=== PATIENT | female | born 1945 | race Caucasian/White ===

== ENCOUNTER → 2016-09-04 | Outpatient (CLI) | payer MEDICARE ==
[2016-01-09 16:10] VITALS: BP 124/63
[~2016-09-04] MED LIST: ALBU8.5H3 INH; ALPR0.254 PO; ALPR0.5T PO; AMIT25TA PO; ATOR10TA PO; AZIT250T PO; CEPH500C PO; GLIP10TA13 PO; INSU100I27 SQ; LEVO75TA5 PO; LISI40TA PO; MELO-150 PO; SITA50TA PO; TRIA1CAP3 PO
--- NOTE | 2016-09-04 14:03 | RAD ---
Ultrasound of the left neck 09/04/2016 Clinical history: Palpable abnormality in the left submandibular region of the neck since May of this year. Technique: A real-time ultrasound examination of the left neck in the area of the patient's palpable abnormality was performed. Multiple images were obtained. Findings: Comparison is made to patient's CT scan of the neck dated 06/22/2016. Anterior and inferior to the left submandibular gland an oval-shaped hyperechoic mass is seen which measures 1.5 cm in greatest diameter. This corresponds to the patient's palpable abnormality. It is approximately 2 mm deep to the skin surface. This is consistent with a lipoma. No additional abnormality is seen. Small likely reactive lymph nodes are seen in the left submandibular region. These measure 5 to 7 mm in size Impression: The patient's palpable abnormality represents a 1.5 cm lipoma within the left submandibular region as outlined above.
== END | disposition home or self-care (01) ==
LOC: US 12:32
PROVIDERS: ATTEND Family Medicine
DX: R59.0 Localized enlarged lymph nodes (principal)
CPT/HCPCS: 76536

== ENCOUNTER 2016-09-29 00:07 | Emergency (ER) | payer MEDICARE ==
[~2016-09-29 00:07] MED LIST changes: -ALBU8.5H3 INH; +ALBU8.5H8 INH; -MELO-150 PO; +MELO15TA23 PO
--- NOTE | 2016-09-29 00:11 | ED.ADGEN ---
Past History Past Medical History: Anxiety, Diabetes, High Cholesterol, Hypertension Past Surgical History: Hysterectomy Alcohol Use: None Drug Use: None Adult General Chief Complaint Chief Complaint Chest pain HPI HPI Patient is a 71 year old female who presents with. She states that she was just sitting there watching TV working with some crafts when she got a substernal left-sided chest pain that was constant and lasted for about an hour and is slowly letting up. She denied any shortness of breath associated with this but felt some nausea. She states she's never had pain like this before and she's never had a stress test of her heart. She denies any history of tobacco abuse. Review of Systems Review of Systems Constitutional: Denies fever or chills [] Eyes: Denies change in visual acuity, redness, or eye pain [] HENT: Denies nasal congestion or sore throat [] Respiratory: Denies cough or shortness of breath [] Cardiovascular: No additional information not addressed in HPI [] GI: Denies abdominal pain, nausea, vomiting, bloody stools or diarrhea [] : Denies dysuria or hematuria [] Musculoskeletal: Denies back pain or joint pain [] Integument: Denies rash or skin lesions [] Neurologic: Denies headache, focal weakness or sensory changes [] Endocrine: Denies polyuria or polydipsia [] Current Medications Current Medications Current Medications Medications (Trade) Dose Ordered Sig/Mejia Start Time Stop Time Status Last Admin Dose Admin Morphine Sulfate (Morphine 2mg Syringe) 2 mg PRN Q15MIN PRN 09/29/16 00:15 09/30/16 00:14 Allergies Allergies Allergies Coded Allergies Type Severity Reaction Last Updated Verified Salicylates Allergy Intermediate 07/14/15 Yes fentanyl Allergy Intermediate 07/14/15 Yes oxaprozin Allergy Intermediate 07/14/15 Yes Physical Exam Physical Exam Constitutional: Well developed, well nourished, no acute distress, non-toxic appearance. [] HENT: Normocephalic, atraumatic, bilateral external ears normal, oropharynx moist, no oral exudates, nose normal. [] Eyes: PERRLA, EOMI, conjunctiva normal, no discharge. [] Neck: Normal range of motion, no tenderness, supple, no stridor. [] Cardiovascular:Heart rate regular rhythm, no murmur [] Lungs & Thorax: Bilateral breath sounds clear to auscultation [] Abdomen: Bowel sounds normal, soft, no tenderness, no masses, no pulsatile masses. [] Skin: Warm, dry, no erythema, no rash. [] Back: No tenderness, no CVA tenderness. [] Extremities: No tenderness, no cyanosis, no clubbing, ROM intact, no edema. [] Neurologic: Alert and oriented X 3, normal motor function, normal sensory function, no focal deficits noted. [] Psychologic: Affect normal, judgement normal, mood normal. [] Current Patient Data Lab Results Laboratory Tests Test 09/29/16 00:20 09/29/16 01:10 09/29/16 04:17 White Blood Count 9.9 x10^3/uL (4.0-11.0) Red Blood Count 4.49 x10^6/uL (3.50-5.40) Hemoglobin 14.6 g/dL (12.0-15.5) Hematocrit 43.2 % (36.0-47.0) Mean Corpuscular Volume 96 fL (79-100) Mean Corpuscular Hemoglobin 32 pg (25-35) Mean Corpuscular Hemoglobin Concent 34 g/dL (31-37) Red Cell Distribution Width 13.2 % (11.5-14.5) Platelet Count 317 x10^3/uL (140-400) Neutrophils (%) (Auto) 52 % (31-73) Lymphocytes (%) (Auto) 38 % (24-48) Monocytes (%) (Auto) 8 % (0-9) Eosinophils (%) (Auto) 1 % (0-3) Basophils (%) (Auto) 1 % (0-3) Neutrophils # (Auto) 5.2 x10^3uL (1.8-7.7) Lymphocytes # (Auto) 3.7 x10^3/uL (1.0-4.8) Monocytes # (Auto) 0.8 x10^3/uL (0.0-1.1) Eosinophils # (Auto) 0.1 x10^3/uL (0.0-0.7) Basophils # (Auto) 0.1 x10^3/uL (0.0-0.2) Prothrombin Time 10.1 SEC (9.4-11.4) Prothrombin Time INR 1.0 (0.9-1.1) PTT 22 SEC (23-33) L Sodium Level 139 mmol/L (136-145) Potassium Level 3.6 mmol/L (3.5-5.1) Chloride Level 101 mmol/L (98-107) Carbon Dioxide Level 28 mmol/L (21-32) Anion Gap 10 (6-14) Blood Urea Nitrogen 34 mg/dL (7-20) H Creatinine 1.3 mg/dL (0.6-1.0) H Estimated GFR (Cockcroft-Gault) 40.6 Glucose Level 290 mg/dL (70-99) H Calcium Level 9.1 mg/dL (8.5-10.1) Magnesium Level 1.8 mg/dL (1.8-2.4) Total Bilirubin 1.1 mg/dL (0.2-1.0) H Direct Bilirubin 0.2 mg/dL (0.0-0.2) Aspartate Amino Transferase (AST) 14 U/L (15-37) L Alanine Aminotransferase (ALT) 22 U/L (14-59) Alkaline Phosphatase 93 U/L (46-116) Creatine Kinase 32 U/L (26-192) 39 U/L (26-192) Creatine Kinase MB (Mass) < 0.5 ng/mL (0.0-3.6) 0.5 ng/mL (0.0-3.6) Creatine Kinase MB Relative Index 1.6 % (0-4) 1.3 % (0-4) Troponin I Quantitative < 0.017 ng/mL (0-0.055) < 0.017 ng/mL (0-0.055) HB-Uxw-A-Type Natriuretic Peptide 143 pg/mL (0-124) H Total Protein 7.5 g/dL (6.4-8.2) Albumin 3.4 g/dL (3.4-5.0) Lipase 158 U/L (73-393) Urine Collection Type Unknown Urine Color Yellow Urine Clarity Hazy Urine pH 5.0 Urine Specific [place] 1.010 Urine Protein Neg (NEG-TRACE) Urine Glucose (UA) 250 mg/dL (NEG) Urine Ketones (Stick) Neg mg/dL (NEG) Urine Blood Neg (NEG) Urine Nitrite Pos (NEG) Urine Bilirubin Neg (NEG) Urine Urobilinogen Dipstick 0.2 mg/dL (0.2 mg/dL) Urine Leukocyte Esterase Mod (NEG) Urine RBC 0 /HPF (0-2) Urine WBC 20-40 /HPF (0-4) Urine Squamous Epithelial Cells Many /LPF Urine Bacteria Mod /HPF (0-FEW) Urine Opiates Screen Neg (NEG) Urine Methadone Screen Neg (NEG) Urine Barbiturates Neg (NEG) Urine Phencyclidine Screen Neg (NEG) Urine Amphetamine/Methamphetamine Neg (NEG) Urine Benzodiazepines Screen Pos (NEG) Urine Cocaine Screen Neg (NEG) Urine Cannabinoids Screen Neg (NEG) Urine Ethyl Alcohol Neg (NEG) EKG EKG KG shows normal sinus rhythm with rate of [address] elevations or T- wave inversions, left axis deviation, QTC 438 ms, as interpreted by me. Radiology/Procedures Radiology/Procedures Two-view chest x-ray shows no focal consolidations, mediastinum is approximately 9 cm wide, no bony abnormalities, no pneumothorax noted, as interpreted by me. Course & Med Decision Making Course & Med Decision Making Pertinent Labs and Imaging studies reviewed. (See chart for details) EKG, chest x-ray, CT chest 7 pelvis without contrast did not show any acute abnormalities. Her pain is completely resolved. She is refusing to be admitted. Her daughter is here and overheard a conversation and is okay with her mom making the decision to leave AGAINST MEDICAL ADVICE. She is being discharged home. She is to follow-up with primary care physician for an outpatient stress test. She is return back to ER for pain returns or she has any other abnormalities. I did repeat 1 troponin prior to her being discharged. She is agreeable to the plan and being discharged in stable condition this time. Final Impression Final Impression Chest pain [] Problems: Dragon Disclaimer Dragon Disclaimer This electronic medical record was generated, in whole or in part, using a voice recognition dictation system. ARNALDO TEMPLETON MD September 29, 2016 00:11
[2016-09-29] MEDS ORDERED: MORPHINE SULFATE 2 MG/ML DISP.SYRIN. IV/SQ PRN (00:15)
[2016-09-29 00:39] LABS: BASO # 0.1 x10^3/uL (0.0-0.2); BASO % 1 % (0-3); EOS # 0.1 x10^3/uL (0.0-0.7); EOS % 1 % (0-3); HEMATOCRIT 43.2 % (36.0-47.0); HEMOGLOBIN 14.6 g/dL (12.0-15.5); LYMPH # 3.7 x10^3/uL (1.0-4.8); LYMPH % 38 % (24-48); MEAN CORPUSCULAR HEMOGLOBIN 32 pg (25-35); MEAN CORPUSCULAR HGB CONC 34 g/dL (31-37); MEAN CORPUSCULAR VOLUME 96 fL (79-100); MONO # 0.8 x10^3/uL (0.0-1.1); MONO % 8 % (0-9); NEUT # 5.2 x10^3uL (1.8-7.7); NEUT % 52 % (31-73); PLATELET COUNT 317 x10^3/uL (140-400); RED BLOOD COUNT 4.49 x10^6/uL (3.50-5.40); RED CELL DISTRIBUTION WIDTH 13.2 % (11.5-14.5); WHITE BLOOD COUNT 9.9 x10^3/uL (4.0-11.0)
[2016-09-29 00:57] LABS: ALBUMIN 3.4 g/dL (3.4-5.0); ALK PHOS 93 U/L (46-116); ALT (SGPT) 22 U/L (14-59); ANION GAP 10 (6-14); AST (SGOT) 14 U/L (15-37); BLOOD UREA NITROGEN 34 mg/dL (7-20); CALCIUM 9.1 mg/dL (8.5-10.1); CARBON DIOXIDE 28 mmol/L (21-32); CHLORIDE 101 mmol/L (98-107); CREATINE KINASE 32 U/L (26-192); CREATININE 1.3 mg/dL (0.6-1.0); DIRECT BILIRUBIN 0.2 mg/dL (0.0-0.2); GFR 40.6; GLUCOSE 290 mg/dL (70-99); LIPASE 158 U/L (73-393); MAGNESIUM 1.8 mg/dL (1.8-2.4); POTASSIUM 3.6 mmol/L (3.5-5.1); SODIUM 139 mmol/L (136-145); TOTAL BILIRUBIN 1.1 mg/dL (0.2-1.0); TOTAL PROTEIN 7.5 g/dL (6.4-8.2)
[2016-09-29 01:27] LABS: AMPHETAMINE/METHAMPHETAMINE NEG (NEG); BARBITURATES NEG (NEG); BENZODIAZEPINES POS (NEG); CANNABINOIDS NEG (NEG); COCAINE NEG (NEG); METHADONE NEG (NEG); OPIATES NEG (NEG); PHENCYCLIDINE NEG (NEG)
[2016-09-29 01:30] LABS: BILIRUBIN,URINE NEG (NEG); CLARITY,URINE HAZY; COLOR,URINE YELLOW; GLUCOSE,URINE 250 mg/dL (NEG); NITRITE,URINE POS (NEG); UROBILINOGEN,URINE 0.2 mg/dL (0.2 mg/dL)
[2016-09-29 01:31] LABS: BACTERIA,URINE MOD /HPF (0-FEW); RBC,URINE 0 /HPF (0-2); SQUAMOUS EPITHELIAL CELL,UR MANY /LPF; WBC,URINE 20-40 /HPF (0-4)
--- NOTE | 2016-09-29 03:04 | RAD ---
PROCEDURE CT chest abdomen and pelvis without contrast. HISTORY Chest pain and nausea tonight. TECHNIQUE Helical CT imaging of the chest abdomen and pelvis is performed without IV or oral contrast. PQRS: One or more the following individualized dose reduction techniques were utilized for the study: 1. Automated exposure control. 2. Adjustment of the mA and/or kV according to patient size. 3. Use of iterative reconstruction technique. COMPARISON CT abdomen pelvis with contrast, July 14, 2015. FINDINGS Evaluation of solid organs and bowel is limited without oral and IV contrast, decreasing sensitivity for detection of pathology. There are several subcentimeter mediastinal lymph nodes. Calcified left hilar lymph nodes. Great vessels upper limits of normal in caliber. Coronary artery disease. Mild mitral annular calcification. Cardiac size normal, no pericardial effusion. There is no pleural effusion or pneumothorax. Respiratory motion artifact. Central airways patent. Mild atelectasis or scarring in the periphery of the right lower lobe in the lingula. Calcified granuloma left lower lobe. Cholecystectomy. The liver, spleen, pancreas, adrenal glands, and abdominal aortic caliber are normal. Moderate atherosclerotic calcification. Mild bilateral perinephric stranding. There is no hydronephrosis. There is motion artifact in the upper abdomen. No obvious abnormality of the stomach. No dilated small bowel. There is no colon wall thickening. The appendix is normal. No abdominal adenopathy or free fluid. Urinary bladder is normal. Uterus surgically absent. No pelvic free fluid. Mild grade 1 anterolisthesis of L4 on L5. No compression fracture. IMPRESSION No acute abnormality in the chest abdomen or pelvis. Electronically signed by: Danilo Pierson MD (September 29, 2016 03:02:05)
[2016-09-29 04:30] VITALS: BP 121/85
--- NOTE | 2016-09-29 06:39 | EKG ---
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
--- NOTE | 2016-09-29 07:01 | RAD ---
Indication: Chest pain. Time of exam 0032 hours. Comparison is made with prior chest from 03/02/2016. FINDINGS: The heart size is normal. The lungs are clear. No pleural effusion or pneumothorax is identified. The pulmonary vascularity is normal. IMPRESSION: No acute abnormality detected.
== END 2016-09-29 04:30 | disposition home or self-care (01) ==
LOC: ER 00:07
DX: R07.89 Other chest pain (principal); E78.00 Pure hypercholesterolemia, unspecified; I10 Essential (primary) hypertension; E11.9 Type 2 diabetes mellitus without complications; Z88.8 Allergy status to other drugs, medicaments and biological substances
CPT/HCPCS: 36415; 71010; 71250; 74176; 80048; 80076; 80305; 81001; 82553; 83690; 83735; 83880; 84484; 85027; 85610; 85730; 87086; 93005; G0481; 99285-25

== ENCOUNTER → 2016-12-09 | Outpatient (CLI) | payer MEDICARE ==
--- NOTE | 2016-12-09 12:35 | RAD ---
EXAM: DIGITAL SCREEN BILAT W/CAD HISTORY: Routine Screening. COMPARISON: 11/12/2015 Standard mammographic views are obtained of the bilateral breasts. This study was interpreted with the benefit of Computerized Aided Detection (CAD). FINDINGS: The breast parenchyma is primarily fatty replaced. Breast parenchyma level density 1.. There is no definite new suspicious spiculated mass or worrisome new cluster of microcalcifications. Repeat demonstration of numerous benign-appearing calcifications bilaterally. Some of these have increased from prior. IMPRESSION: No definite new suspicious mass. BI-RADS CATEGORY: 2 BENIGN FINDING RECOMMENDED FOLLOW-UP: 12M 12 MONTH FOLLOW-UP PQRS compliance statement: Patient information was entered into a reminder system with a target due date for the next mammogram. Mammography is a sensitive method for finding small breast cancers, but it does not detect them all and is not a substitute for careful clinical examination. A negative mammogram does not negate a clinically suspicious finding and should not result in delay in biopsying a clinically suspicious abnormality. "Our facility is accredited by the [employer] Mammography Program."
== END | disposition home or self-care (01) ==
LOC: MAMMO 11:02
PROVIDERS: ATTEND Family Medicine
DX: Z12.31 Encounter for screening mammogram for malignant neoplasm of breast (principal); E11.21 Type 2 diabetes mellitus with diabetic nephropathy
CPT/HCPCS: G0202; 77067

== ENCOUNTER → 2020-02-08 | Outpatient (CLI) | payer MEDICARE ==
[~2020-02-08] MED LIST changes: +ALBU2.5V8 INH; -ALBU8.5H8 INH
--- NOTE | 2020-02-08 09:08 | RAD ---
ABDOMEN COMPLETE History: Abnormal liver function tests Comparison: None. Findings: Multiple sonographic images of the abdomen are submitted. Exam is limited due to patient's body habitus. There has been cholecystectomy. There is diffuse coarsening of the hepatic echotexture of the liver. Right lobe of the liver measured 17.4 cm longitudinal. There is segmental visualization of the inferior vena cava. Common bile duct measures about 0.7 cm, considered within normal limits given patient's age and cholecystectomy. Right kidney measured 9.5 x 6.3 x 5 cm, no hydronephrosis. Left kidney measured 9.1 x 4.2 x 4.7 cm, no hydronephrosis. Abdominal aortic caliber is within normal limits up to 2.2 cm. Spleen measured up to 10.3 cm. Impression: 1. There is diffuse coarsening of the hepatic echotexture more commonly due to steatosis. Electronically signed by: Anthony Colon MD (02/08/2020 9:05 AM) [id number]
== END | disposition home or self-care (01) ==
LOC: US 07:42
PROVIDERS: ATTEND Family Medicine
DX: K76.0 Fatty (change of) liver, not elsewhere classified (principal); Z90.49 Acquired absence of other specified parts of digestive tract
CPT/HCPCS: 76700

== ENCOUNTER 2021-03-21 03:42 | Emergency (ER) | payer MEDICARE ==
[~2021-03-21] VITALS: Ht 162.6 cm; Wt 143.6 kg
[~2021-03-21 03:42] MED LIST changes: -LISI40TA PO; +LISI40TA6 PO
--- NOTE | 2021-03-21 03:45 | PHYS DOC ---
Past History Past Medical History: Diabetes, Hypertension, Hypothyroid Past Surgical History: Hysterectomy Alcohol Use: None Drug Use: None General Adult HPI: HPI: .. " I rolled over and fell out of bed.. and hurt my Rt. hip.. it coreen ... Embarrassing... I used to go to [place]... They were on high-volume ... So they brought me here .. it been a long time since I ve been to [place]..." Patient is a 75 year old female who presents with above hx and complaints right hip and femur pain after falling out of bed. Patient states she is unable to bear weight because of pain on her right hip. Patient denies other injury from the fall out of bed. Patient has past medical history of chronic sores and cellulitis episodes on her legs. Diabetes type 2, morbid obesity, hypertension, hyper lipidemia, depression, anxiety, hypothyroidism. Patient has had previous abdomen surgeries of hysterectomy and arthroscopic evaluation of right knee. Patient denies any recent travel outside the [place] area. No significant ill contacts. Patient is up-to-date with [place] vaccinationx2. Patient follow- up with Dr. Moreno Review of Systems: Review of Systems: Constitutional: Denies fever or chills Eyes: Denies change in visual acuity HENT: Denies nasal congestion or sore throat Respiratory: Denies cough or shortness of breath Cardiovascular: Denies chest pain or edema GI: Denies abdominal pain, nausea, vomiting, bloody stools or diarrhea : Denies dysuria Musculoskeletal: Complains of right hip and leg pain Integument: Denies rash Neurologic: Denies headache, focal weakness or sensory changes Endocrine: Denies polyuria or polydipsia Lymphatic: Denies swollen glands Psychiatric: Denies depression or anxiety Family History: Family History: There is family history of CVA as cause of with father, mother of congestive heart failure, one sister of end-stage renal disease, other 2 s isters are healthy. 2 brothers that are healthy. Current Medications: Current Meds: See nursing for home meds Allergies: Allergies: Allergies Coded Allergies Type Severity Reaction Last Updated Verified Salicylates Allergy Intermediate 07/14/15 Yes fentanyl Allergy Intermediate 07/14/15 Yes oxaprozin Allergy Intermediate 07/14/15 Yes Physical Exam: PE: Constitutional: mild distress, non-toxic appearance. [] HENT: Normocephalic, atraumatic, bilateral external ears normal, oropharynx moist, no oral exudates, nose normal. [] Eyes: PERRLA, EOMI, conjunctiva normal, no discharge. [] Neck: Normal range of motion, no tenderness, supple, no stridor. [] Cardiovascular:Heart rate regular rhythm, no murmur, PMI to the left Lungs & Thorax: Bilateral breath sounds to apex with bibasilar crackles on auscultation [] Abdomen: Bowel sounds normal, soft, no tenderness, no masses, no pulsatile masses. Morbid obesity Skin: Warm, dry, no erythema, no rash. [] Back: No tenderness, no CVA tenderness. [] Extremities: Right hip and pelvic tenderness, no cyanosis, no clubbing, ROM intact, bilateral leg edema. [] Neurologic: Alert and oriented X 3, moves all extremities on request, does have distal sensory, no focal deficits noted. [] Psychologic: Affect anxious, judgement normal, mood normal. [] EKG: EKG: My interpretation EKG shows a sinus rhythm at 82 bpm. No acute morphology. Is an irregular ribbon at times appears to be A. fib however isolated P wave is appreciated and lead II on monitor time EKG is 421 hours [] Radiology/Procedures: Radiology/Procedures: [][place] [address] IMAGING REPORT Signed PATIENT: PARISH CRUZ ACCOUNT: [id number] : 1945 LOCATION: ER AGE: 75 SEX: F EXAM STATUS: PRE ER ORD. PHYSICIAN: RENEE CALDERON MD REASON: fall PROCEDURE: CT LUMBAR SPINE WO CONTRAST Examination: CT lumbar spine and pelvis without contrast HISTORY: History of fall COMPARISON: None available TECHNIQUE: Axial CT images of the lumbar spine and pelvis without contrast. Coronal and sagittal reformats are performed Exposure: One or more of the following individualized dose reduction techniques were utilized for this examination: 1. Automated exposure control 2. Adjustment of the mA and/or kV according to patient size 3. Use of iterative reconstruction technique. FINDINGS: The lumbar vertebral body heights are maintained. Moderate intervertebral disc height loss identified in the lumbar spine most severe at L5-S1 vertebral level 5 lumbar vertebrae are assumed. The bilateral femoral heads within the acetabula. There is no acute fracture identified. Ochoa catheter balloon identified in the bladder. Feces and gas noted in the colon. IMPRESSION: 1. No acute fracture of the lumbar spine. 2. Moderate degenerative changes lumbar spine most severe at L5-S1 vertebral level. Electronically signed by: Ta Sandoval MD (03/21/2021 5:59 AM) [id number] DICTATED AND SIGNED BY: TA SANDOVAL MD DATE: 03/21/21550 CC: GAYLE MORENO MD; RENEE CALDERON MD ~[facility]0 0 [facility] [address] [place] [address] IMAGING REPORT Signed PATIENT: PARISH CRUZ ACCOUNT: [id number] : 1945 LOCATION: ER AGE: 75 SEX: F EXAM STATUS: PRE ER ORD. PHYSICIAN: RENEE CALDERON MD REASON: fall PROCEDURE: CT PELVIS WO CONTRAST Examination: CT lumbar spine and pelvis without contrast HISTORY: History of fall COMPARISON: None available TECHNIQUE: Axial CT images of the lumbar spine and pelvis without contrast. Coronal and sagittal reformats are performed Exposure: One or more of the following individualized dose reduction techniques were utilized for this examination: 1. Automated exposure control 2. Adjustment of the mA and/or kV according to patient size 3. Use of iterative reconstruction technique. FINDINGS: The lumbar vertebral body heights are maintained. Moderate intervertebral disc height loss identified in the lumbar spine most severe at L5-S1 vertebral level 5 lumbar vertebrae are assumed. The bilateral femoral heads within the acetabula. There is no acute fracture identified. Ochoa catheter balloon identified in the bladder. Feces and gas noted in the colon. IMPRESSION: 1. No acute fracture of the lumbar spine. 2. Moderate degenerative changes lumbar spine most severe at L5-S1 vertebral level. Electronically signed by: Ta Sandoval MD (03/21/2021 5:59 AM) [id number] DICTATED AND SIGNED BY: TA SANDOVAL MD DATE: 03/21/21550 CC: GAYLE MORENO MD; RENEE CALDERON MD ~MTH0 0 Heart Score: C/O Chest Pain: No HEART Score for Chest Pain: HEART Score for Chest Pain Response (Comments) Value History Moderately Suspicious 1 ECG Nonspecific Repolarizatio 1 Age > 65 2 Risk Factors 1 or 2 Risk Factors 1 Troponin < Normal Limit 0 Total 5 Risk Factors: Risk Factors: DM, Current or recent (<one month) smoker, HTN, HLP, family history of CAD, obesity. Risk Scores: Score 0 - 3: 2.5% MACE over next 6 weeks - Discharge Home Score 4 - 6: 20.3% MACE over next 6 weeks - Admit for Clinical Observation Score 7 - 10: 72.7% MACE over next 6 weeks - Early Invasive Strategies Course & Med Decision Making: Course & Med Decision Making Pertinent Labs and Imaging studies reviewed. (See chart for details) Patient use ice packs as needed. Keep passive range of motion. Follow-up primary care. Return if any concerns. Patient discussed with her doctor her findings of CHF and hypertension. Return if any concerns. Tylenol and ibuprofen for discomfort. Impression: 1. History of fall from bed 2. Contusion 3. CHF BNP is 1160 4. History of hypothyroidism 5. Morbid obesity 6. History diabetes glucose stable at 94 7. History of hypothyroidism TSH is 7.66 8. Hypertension 9. History of hyperlipidemia [] Dragon Disclaimer: Akil Disclaimer: This electronic medical record was generated, in whole or in part, using a voice recognition dictation system. Departure Departure: Referrals: GAYLE MORENO MD (PCP) Scripts Furosemide (LASIX) 40 Mg Tablet 40 MG PO DAILY for CHF, #30 TAB Prov: RENEE CALDERON MD 03/21/21 Ciprofloxacin (CIPRO) 500 Mg/5 Ml [facility]..rec 500 MG PO BID for uti for 7 Days, MISC Prov: RENEE CALDERON MD 03/21/21 RENEE CALDERON MD Mar 21, 2021 03:45
[2021-03-21 03:52] VITALS: BP 128/74
[2021-03-21] MEDS ORDERED: MORPHINE SULFATE 10 MG/ML SYRINGE. SQ ONE (04:15)
[2021-03-21] MEDS ORDERED: IV RINGERS SOLUTION,LACTATED 1,000 ML IV SCH (04:15)
[2021-03-21 04:38] LABS: BASO # 0.1 x10^3/uL (0.0-0.2); BASO % 1 % (0-3); EOS # 0.2 x10^3/uL (0.0-0.7); EOS % 2 % (0-3); HEMATOCRIT 40.3 % (36.0-47.0); HEMOGLOBIN 13.2 g/dL (12.0-15.5); LYMPH # 2.1 x10^3/uL (1.0-4.8); LYMPH % 21 % (24-48); MEAN CORPUSCULAR HEMOGLOBIN 33 pg (25-35); MEAN CORPUSCULAR HGB CONC 33 g/dL (31-37); MEAN CORPUSCULAR VOLUME 100 fL (79-100); MONO # 0.8 x10^3/uL (0.0-1.1); MONO % 8 % (0-9); NEUT # 6.9 x10^3uL (1.8-7.7); NEUT % 69 % (31-73); PLATELET COUNT 296 x10^3/uL (140-400); RED BLOOD COUNT 4.05 x10^6/uL (3.50-5.40); RED CELL DISTRIBUTION WIDTH 13.4 % (11.5-14.5)
[2021-03-21 04:41] LABS: CALCIUM 8.9 mg/dL (8.5-10.1); GFR 54.3; POTASSIUM 3.7 mmol/L (3.5-5.1)
[2021-03-21 04:43] LABS: AMPHETAMINE/METHAMPHETAMINE NEG (NEG); BARBITURATES NEG (NEG); BENZODIAZEPINES NEG (NEG); CANNABINOIDS NEG (NEG); COCAINE NEG (NEG); METHADONE NEG (NEG); OPIATES NEG (NEG); PHENCYCLIDINE NEG (NEG)
[2021-03-21 04:45] LABS: BACTERIA,URINE MOD /HPF (0-FEW); BILIRUBIN,URINE NEG (NEG); CLARITY,URINE HAZY; COLOR,URINE YELLOW; GLUCOSE,URINE NEG (NEG); NITRITE,URINE POS (NEG); RBC,URINE 0 /HPF (0-2); UROBILINOGEN,URINE 0.2 mg/dL (0.2 mg/dL)
[2021-03-21 04:46] LABS: SQUAMOUS EPITHELIAL CELL,UR OCC /LPF
[2021-03-21 04:54] LABS: ALBUMIN 3.2 g/dL (3.4-5.0); DIRECT BILIRUBIN 0.3 mg/dL (0.0-0.2); MAGNESIUM 2.1 mg/dL (1.8-2.4); TOTAL BILIRUBIN 1.3 mg/dL (0.2-1.0); TOTAL PROTEIN 6.8 g/dL (6.4-8.2)
--- NOTE | 2021-03-21 06:02 | RAD ---
Examination: CT lumbar spine and pelvis without contrast HISTORY: History of fall COMPARISON: None available TECHNIQUE: Axial CT images of the lumbar spine and pelvis without contrast. Coronal and sagittal refo rmats are performed Exposure: One or more of the following individualized dose reduction techniques were utilized for thi s examination: 1. Automated exposure control 2. Adjustment of the mA and/or kV according to patient size 3. Use of iterative reconstruction technique. FINDINGS: The lumbar vertebral body heights are maintained. Moderate intervertebral disc height loss identified in the lumbar spine most severe at L5-S1 vertebral level 5 lumbar vertebrae are assumed. The bilateral femoral heads within the acetabula. There is no acute f racture identified. Ochoa catheter balloon identified in the bladder. Feces and gas noted in the colo n. IMPRESSION: 1. No acute fracture of the lumbar spine. 2. Moderate degenerative changes lumbar spine most severe at L5-S1 vertebral level. Electronically signed by: Ta Sandoval MD (03/21/2021 5:59 AM) [id number]
[2021-03-21] MEDS ORDERED: CIPROFLOXACIN HCL 500 MG TABLET PO ONE (06:15)
[2021-03-21] MEDS ORDERED: FUROSEMIDE 40 MG/4 ML VIAL IVP ONE (06:15)
[2021-03-21] MEDS ORDERED: FUROSEMIDE 40 MG/4 ML VIAL ONE (06:18)
[2021-03-21] MEDS ORDERED: FURO-68 PO (06:20)
[2021-03-21] MEDS ORDERED: CIPR500S2 PO (06:20)
--- NOTE | 2021-03-21 06:28 | EKG ---
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
--- NOTE | 2021-03-21 07:09 | RAD ---
Examination: Frontal view the chest and 2 views of the right femur HISTORY: History of fall COMPARISON: None available FINDINGS: Low lung volumes and technique accentuates heart szie and pulmonary vascularity. The lungs are clear. There is no acute fracture or dislocation identified. Femoral head is within the acetabulum. Moderat e joint space loss identified right hip joint. IMPRESSION: 1. No acute cardiopulmonary findings. 2. No acute fracture of the right femur. 3. Moderate degenerative changes right hip joint. Electronically signed by: Ta Sandoval MD (03/21/2021 7:07 AM) [id number]
== END 2021-03-21 06:45 | disposition home or self-care (01) ==
LOC: ER 03:42
DX: M25.551 Pain in right hip (principal); E11.9 Type 2 diabetes mellitus without complications; I10 Essential (primary) hypertension; Z90.710 Acquired absence of both cervix and uterus; Z88.8 Allergy status to other drugs, medicaments and biological substances; W06.XXXA Fall from bed, initial encounter; Y93.89 Activity, other specified; Y92.89 Other specified places as the place of occurrence of the external cause; Y99.8 Other external cause status
CPT/HCPCS: 36415; 71045; 72131; 72192; 73552; 80048; 80076; 80307; 81001; 82550; 83735; 83880; 84443; 84484; 85025; 85610; 85730; 87086; 93005; 96361; 96372; 96374; 99285; J1940; J2270; J7120; 87077; 87186

== ENCOUNTER 2021-03-23 12:12 | Emergency (ER) | payer MEDICARE ==
[~2021-03-23] VITALS: Ht 162.6 cm; Wt 143.0 kg
[~2021-03-23 12:12] MED LIST changes: +CIPR500S2 PO; +FURO-68 PO
[2021-03-23 13:20] VITALS: BP 133/73
--- NOTE | 2021-03-23 14:05 | RAD ---
EXAM: Left ankle, 3 views. HISTORY: Swelling. COMPARISON: None. FINDINGS: 3 views of the left ankle are obtained. There is no fracture, dislocation or subluxation. T he ankle mortise is intact. There is diffuse ankle soft tissue swelling. There is a tiny plantar spur . There is degenerative spurring involving the midfoot. There is no osteochondral lesion. IMPRESSION: Soft tissue swelling. No acute osseous finding. Electronically signed by: Herlinda Freeman MD (03/23/2021 2:03 PM) [id number]
--- NOTE | 2021-03-23 15:23 | RAD ---
EXAM: Left lower extremity venous Doppler. HISTORY: Left lower extremity pain/swelling. COMPARISON: None. FINDINGS: Grayscale and Doppler analysis of the left lower extremity deep venous system was performed with graded compression and augmentation. The common femoral, greater saphenous, superficial femoral , popliteal and calf veins were assessed. Visualization was limited by habitus. There is no evidence of deep venous thrombosis. IMPRESSION: 1. No evidence of deep venous thrombosis. Electronically signed by: Ravindra Garner MD (03/23/2021 3:21 PM) [facility]
[2021-03-23] MEDS ORDERED: HYDR-2155 PO (15:42)
--- NOTE | 2021-03-23 15:43 | PHYS DOC ---
Past History Past Medical History: Diabetes, Hypertension (DINO HINTON W[employer] INST[employer]ER) Past Surgical History: Hysterectomy, Other Additional Past Surgical Histo: knee sugery (DINO HINTON [employer]) Alcohol Use: None Drug Use: None (DINO HINTON [employer]ST[employer]) Adult General Chief Complaint Chief Complaint: LOWER EXTREMITY [facility]MA [facility] HPI Patient is a female with history of diabetes type 2, hypertension, who presents to the ED today complaining of mild swelling and pain to the left medial ankle, symptoms began on Wednesday after she accidentally rolled out of the bed. Patient states she was seen in the ED and had hip pain but did not realize her left ankle will turn painful and swollen a couple days later. Patient denies any new injuries. (DINO HINTON W[employer] INST[employer]ER) Review of Systems Review of Systems Constitutional: Denies fever or chills [] Eyes: Denies change in visual acuity, redness, or eye pain [] HENT: Denies nasal congestion or sore throat [] Respiratory: Denies cough or shortness of breath [] Cardiovascular: No additional information not addressed in HPI [] GI: Denies abdominal pain, nausea, vomiting, bloody stools or diarrhea [] : Denies dysuria or hematuria [] Musculoskeletal: Reports left medial ankle pain, left lower extremity swelling. Denies back pain or joint pain [] Integument: Denies rash or skin lesions [] Neurologic: Denies headache, focal weakness or sensory changes [] All other systems were reviewed and found to be within normal limits, except as documented in this note. (DINO HINTON [employer] INST[employer]ER) Allergies Allergies Allergies Coded Allergies Type Severity Reaction Last Updated Verified No Known Drug Allergies 03/21/21 No (DINO HINTON [employer]ER) Physical Exam Physical Exam Constitutional: Morbidly obese patient, no acute distress, non-toxic appearance. [] HENT: Normocephalic, atraumatic, bilateral external ears normal, oropharynx moist, no oral exudates, nose normal. [] Eyes: PERRLA, EOMI, conjunctiva normal, no discharge. [] Neck: Normal range of motion, no tenderness, supple, no stridor. [] Cardiovascular:Heart rate regular rhythm Lungs & Thorax: Bilateral breath sounds clear to auscultation [] Abdomen: Bowel sounds normal, soft, no tenderness, no masses, no pulsatile masses. [] Skin: See extremity Back: No tenderness, no CVA tenderness. [] Extremities: Left medial ankle with moderate soft tissue swelling, there is moderate bruising on the left medial ankle. Full range of motion to the left foot and toes. +2 left pedal pulse. Negative Homans' sign to the left lower extremity. Neurologic: Alert and oriented X 3, normal motor function, normal sensory functi on, no focal deficits noted. [] Psychologic: Affect normal, judgement normal, mood normal. [] (DINO HINTON APRN) Current Patient Data Vital Signs Vital Signs Date Time Temp Pulse Resp B/P (MAP) Pulse Ox O2 Delivery O2 Flow Rate FiO2 03/23/21 13:19 97.6 83 20 133/73 (93) 98 Room Air (DINO HINTON [employer]) EKG EKG [] (DINO HINTON APRN) Radiology/Procedures Radiology/Procedures []PROCEDURE: VENOUS LOWER EXTREMITY LEFT EXAM: Left lower extremity venous Doppler. HISTORY: Left lower extremity pain/swelling. COMPARISON: None. FINDINGS: Grayscale and Doppler analysis of the left lower extremity deep venous system was performed with graded compression and augmentation. The common femoral, greater saphenous, superficial femoral, popliteal and calf veins were assessed. Visualization was limited by habitus. There is no evidence of deep venous thrombosis. IMPRESSION: 1. No evidence of deep venous thrombosis. Electronically signed by: Ravindra Garner MD (03/23/2021 3:21 PM) [facility] DICTATED AND SIGNED BY: LIANET GARNER MD DATE: 03/23/21 1520 CC: GAYLE BERRIOS MD; DINO HINTON APRN ~MTH0 0 PROCEDURE: ANKLE LEFT 3V EXAM: Left ankle, 3 views. HISTORY: Swelling. COMPARISON: None. FINDINGS: 3 views of the left ankle are obtained. There is no fracture, disloc ation or subluxation. The ankle mortise is intact. There is diffuse ankle soft tissue swelling. There is a tiny plantar spur. There is degenerative spurring involving the midfoot. There is no osteochondral lesion. IMPRESSION: Soft tissue swelling. No acute osseous finding. Electronically signed by: Herlinda Chatman MD (03/23/2021 2:03 PM) [id number] DICTATED AND SIGNED BY: HERLINDA CHATMAN MD DATE: 03/23/21 1401 CC: GAYLE BERRIOS MD; DINO HINTON APRN ~MTH0 0 (DINO HINTON APRN) Heart Score C/O Chest Pain: N/A Risk Factors: Risk Factors: DM, Current or recent (<one month) smoker, HTN, HLP, family history of CAD, obesity. Risk Scores: Risk Factors: DM, Current or recent (<one month) smoker, HTN, HLP, family history of CAD, obesity. (DINO HINTON APRN) Course & Med Decision Making Course & Med Decision Making Pertinent Labs and Imaging studies reviewed. (See chart for details) This is a 75-year-old female patient presenting to the ED today complaining of l eft medial ankle pain and swelling, symptoms began on Wednesday last week after rolling out of bed accidentally. Left ankle x-rays interpreted by radiologist negative for any acute findings. Venous Doppler of the left lower extremity is negative. Ice and elevation encouraged. Stephen bandage applied to the left Lower extremity by the Ed RN, neurovascular exam done by RN is normal. follow-up with Ortho in 1 week (DINO HINTON APRN) Dragon Disclaimer Dragon Disclaimer This electronic medical record was generated, in whole or in part, using a voice recognition dictation system. (DINO HINTON APRN) Attending Co-Sign The patient was seen and interviewed as well as examined at the bedside. The chart was reviewed. The case was discussed. Agree with the plan of care. (AMAURI GARCIA DO) Departure Departure: Impression: Primary Impression: Swelling of lower extremity Additional Impression: Contusion of lower limb, left Disposition: HOME / SELF CARE / HOMELESS Condition: STABLE Referrals: GAYLE BERRIOS MD (PCP) Follow-up next week RENEE PEREZ MD follow up in one week Patient Instructions: Contusion, [id number] Additional Instructions: You were seen for left lower extremity swelling and pain. X-rays of the left ankle are negative for any acute findings, venous Doppler of the left lower extremity is negative for any acute findings. Please wear the Stephen bandage provided as tolerated. Try to ice and elevate the extremity. Follow-up with your own doctor or the provided orthopedic doctor in 1 week Scripts Hydrocodone Bit/Acetaminophen (HYDROCODONE-APAP 5-325 ) 1 Each Tablet 1 TAB PO PRN Q6HRS PRN for PAIN, #10 TAB 0 Refills Prov: DINO HINTON APRN 03/23/21 Problem Qualifiers Additional Impression: Contusion of lower limb, left Encounter type: initial encounter Qualified Codes: S80.12XA - Contusion of left lower leg, initial encounter DINO HINTON APRN Mar 23, 2021 15:43 AMAURI GARCIA DO Mar 25, 2021 12:57
== END 2021-03-23 16:05 | disposition home or self-care (01) ==
LOC: ER 12:12
DX: S80.12XA Contusion of left lower leg, initial encounter (principal); R22.42 Localized swelling, mass and lump, left lower limb; E11.9 Type 2 diabetes mellitus without complications; I10 Essential (primary) hypertension; W06.XXXA Fall from bed, initial encounter; Y93.89 Activity, other specified; Y92.89 Other specified places as the place of occurrence of the external cause; Y99.8 Other external cause status
CPT/HCPCS: 73610; 93971; 99284

== ENCOUNTER 2021-05-07 01:47 | Emergency (ER) | payer MEDICARE ==
[~2021-05-07] VITALS: Ht 175.3 cm; Wt 150.0 kg
[~2021-05-07 01:47] MED LIST changes: +HYDR-2155 PO
--- NOTE | 2021-05-07 01:52 | PHYS DOC ---
Past History Past Medical History: Diabetes, Hypertension Past Surgical History: Hysterectomy, Other Additional Past Surgical Histo: knee sugery Alcohol Use: None Drug Use: None General Adult HPI: HPI: ".. I ve been having diarrhea and nausea..." " I ve gone 4 x since mid night..." " I ve got an apt. with Josh on ..." " But I don't want to wait that long to get this diarrhea to stop..." Patient is a 76 year old female who presents with above hx and complaints nausea and diarrhea. Patient reports for diarrhea stools since midnight tonight. Patient denies any change in her maintenance diet. She did have pizza today cottage cheese fruit and has been drinking diet drinks. Patient denies any recent antibiotics. Patient denies any specific ill contacts. Patient denies any travel. Patient has completed flu vaccination this season and 2 Covid vaccinations and a Pneumovax. Patient denies any specific history of fever or chills. Does have a past medical history of diabetes, morbid obesity, hypertension, hyperlipidemia, depression, anxiety, hypothyroidism, and chronic leg sores. Patient follows with Dr. Berrios. Patient has a previous scheduled follow-up with Dr. Berrios this coming . Patient states there blood sugars have been normally around 150. Review of Systems: Review of Systems: Constitutional: Denies fever or chills Eyes: Denies change in visual acuity HENT: Denies nasal congestion or sore throat Respiratory: Denies cough or shortness of breath Cardiovascular: Denies chest pain or edema GI: Complains of crampy abdominal pain, nausea and diarrhea squirts . Has had increased bowel gas. : Denies dysuria Musculoskeletal: Denies back pain or joint pain Integument: Denies rash Neurologic: Denies headache, focal weakness or sensory changes Endocrine: Denies polyuria or polydipsia Lymphatic: Denies swollen glands Psychiatric: Denies depression or anxiety Family History: Family History: Hypertension diabetes Current Medications: Current Meds: See nursing for home meds Allergies: Allergies: Allergies Coded Allergies Type Severity Reaction Last Updated Verified No Known Drug Allergies 03/21/21 No Physical Exam: PE: Constitutional: no acute distress, non-toxic appearance. [] HENT: Normocephalic, atraumatic, bilateral external ears normal, oropharynx moist, no oral exudates, nose normal. [] Eyes: PERRLA, EOMI, conjunctiva normal, no discharge. [] Neck: Normal range of motion, no tenderness, supple, no stridor. [] Cardiovascular:Heart rate regular rhythm, no murmur [] PMI to the left Lungs & Thorax: Bilateral breath sounds equal apex auscultation [] Abdomen: Bowel sounds hyperactive, soft, mild left lower quadrant tenderness, no masses, no pulsatile masses. Old surgery scars. No true rebound pain. Obese. Skin: Warm, dry, no erythema, lower leg venous stasis changes,. Poor turgor. Back: No tenderness, no CVA tenderness. [] Extremities: No tenderness, no cyanosis, no clubbing, ROM intact, edema edema. [] Neurologic: Alert and oriented X 3, moves all extremities on request, does have distal sensory,, no focal deficits noted. [] Psychologic: Affect anxious, judgement normal, mood normal. [] EKG: EKG: [] Radiology/Procedures: Radiology/Procedures: [] Heart Score: C/O Chest Pain: N/A Risk Factors: Risk Factors: DM, Current or recent (<one month) smoker, HTN, HLP, family history of CAD, obesity. Risk Scores: Score 0 - 3: 2.5% MACE over next 6 weeks - Discharge Home Score 4 - 6: 20.3% MACE over next 6 weeks - Admit for Clinical Observation Score 7 - 10: 72.7% MACE over next 6 weeks - Early Invasive Strategies Course & Med Decision Making: Course & Med Decision Making Pertinent Labs and Imaging studies reviewed. (See chart for details) Patient stay on a clear fluid diet only. No solids no milk products clear fluids only. Clear fluids only for the next 48 hours. Patient to follow-up stool cultures. Patient follow-up C. difficile. Patient take Zofran 8 mg at 4 times a day for nausea. Consider a short trial of Pepto-Bismol 2 tablets with each stool up to 4 times a day. Keep follow-up with Dr. Berrios. Impression: 1. Viral Syndrome 2. Diarrhea 3. Hx. DM 4. Mild Leukocytosis 12.6 5. Mild Hypokalemia 3.4 [] Akil Disclaimer: Akil Disclaimer: This electronic medical record was generated, in whole or in part, using a voice recognition dictation system. Departure Departure: Referrals: GAYLE BERRIOS MD (PCP) Scripts Ondansetron Hcl (ZOFRAN) 4 Mg Tablet 8 MG PO QIDPRN PRN for nv, #30 TAB Prov: RENEE CALDERON MD 05/07/21 Akil Disclaimer This chart was dictated in whole or in part using Voice Recognition software in a busy, high-work load, and often noisy Emergency Department environment. It may contain unintended and wholly unrecognized errors or omissions. Dragon Disclaimer This chart was dictated in whole or in part using Voice Recognition software in a busy, high-work load, and often noisy Emergency Department environment. It may contain unintended and wholly unrecognized errors or omissions. RENEE CALDERON MD May 07, 2021 01:52
[2021-05-07] MEDS ORDERED: BISMUTH SUBSALICYLATE 262 MG TAB.CHEW PO PRN (02:00)
[2021-05-07] MEDS ORDERED: oxyCODONE/APAP 5/325 1 TAB TABLET PO ONE (02:00)
[2021-05-07] MEDS ORDERED: ONDANSETRON PF 4 MG/2 ML VIAL. IVP ONE (02:00)
[2021-05-07] MEDS ORDERED: IV RINGERS SOLUTION,LACTATED 1,000 ML IV SCH (02:00)
[2021-05-07] MEDS ORDERED: FAMOTIDINE 20 MG/2 ML VIAL IVP ONE (02:00)
--- NOTE | 2021-05-07 03:13 | RAD ---
XR ABDOMEN COMP ACUTE INDICATION: pain, nausea, diarrhea COMPARISON STUDY: None. FINDINGS: Lungs: Normal lung volume. No pulmonary mass or consolidation. The tracheobronchial tree and hilar st ructures are normal. Pleura: No pleural effusion or pneumothorax. Heart and Mediastinum: The cardiomediastinal silhouette is normal. Atherosclerosis of the thoracic ao rta. Abdomen: Nonobstructive bowel gas pattern. No free air. Right upper quadrant surgical clips. IMPRESSION: 1. Nonobstructive bowel gas pattern. 2. No focal airspace disease. Electronically signed by: Anthony Kolb MD (05/07/2021 3:11 AM) [facility]
[2021-05-07 03:15] LABS: BASO # 0.1 x10^3/uL (0.0-0.2); BASO % 1 % (0-3); EOS # 0.1 x10^3/uL (0.0-0.7); EOS % 1 % (0-3); HEMATOCRIT 42.2 % (36.0-47.0); HEMOGLOBIN 13.9 g/dL (12.0-15.5); LYMPH % 16 % (24-48); MEAN CORPUSCULAR HEMOGLOBIN 32 pg (25-35); MEAN CORPUSCULAR HGB CONC 33 g/dL (31-37); MEAN CORPUSCULAR VOLUME 97 fL (79-100); MONO % 8 % (0-9); NEUT # 9.4 x10^3uL (1.8-7.7); NEUT % 75 % (31-73); PLATELET COUNT 345 x10^3/uL (140-400); RED BLOOD COUNT 4.34 x10^6/uL (3.50-5.40); RED CELL DISTRIBUTION WIDTH 13.6 % (11.5-14.5); WHITE BLOOD COUNT 12.6 x10^3/uL (4.0-11.0)
[2021-05-07 03:25] LABS: CALCIUM 8.9 mg/dL (8.5-10.1); CREATININE 1.2 mg/dL (0.6-1.0); GFR 43.9; POTASSIUM 3.4 mmol/L (3.5-5.1)
[2021-05-07 03:31] LABS: ALBUMIN 3.4 g/dL (3.4-5.0); DIRECT BILIRUBIN 0.3 mg/dL (0.0-0.2); TOTAL BILIRUBIN 1.3 mg/dL (0.2-1.0); TOTAL PROTEIN 6.6 g/dL (6.4-8.2)
[2021-05-07] MEDS ORDERED: ONDA4TAB7 PO (03:46)
[2021-05-07 04:20] LABS: INFLUENZA A PATIENT NEGATIVE (NEGATIVE); INFLUENZA B PATIENT NEGATIVE (NEGATIVE)
[2021-05-07 04:52] VITALS: BP 106/64
[2021-05-07 05:37] LABS: BACTERIA,URINE FEW /HPF (0-FEW); BILIRUBIN,URINE NEG (NEG); CLARITY,URINE HAZY; COLOR,URINE YELLOW; GLUCOSE,URINE NEG (NEG); NITRITE,URINE NEG (NEG); RBC,URINE 0 /HPF (0-2); SQUAMOUS EPITHELIAL CELL,UR MOD /LPF; UROBILINOGEN,URINE 0.2 mg/dL (0.2 mg/dL)
== END 2021-05-07 05:01 | disposition home or self-care (01) ==
LOC: ER 01:47
DX: B34.9 Viral infection, unspecified (principal); R19.7 Diarrhea, unspecified; D72.829 Elevated white blood cell count, unspecified; E87.6 Hypokalemia; E11.9 Type 2 diabetes mellitus without complications; I10 Essential (primary) hypertension; Z90.710 Acquired absence of both cervix and uterus; Z20.822 Contact with and (suspected) exposure to COVID-19
CPT/HCPCS: 74022; 80048; 80076; 81001; 82947; 83690; 84484; 85025; 87086; 87426; 87493; 87804; 96361; 96374; 96375; 99284; C9803; J2405; J3490; J7120; U0003

== ENCOUNTER 2021-05-26 10:38 | Emergency (ER) | payer MEDICARE ==
[~2021-05-26] VITALS: Ht 175.3 cm; Wt 151.8 kg
[~2021-05-26 10:38] MED LIST changes: +ONDA4TAB7 PO
--- NOTE | 2021-05-26 11:14 | PHYS DOC ---
Past History Past Medical History: Diabetes, Hypertension Additional Past Medical Histor: Sleep apnea requiring o2 at night Past Surgical History: Hysterectomy, Knee Replacement Additional Past Surgical Histo: knee sugery Alcohol Use: None Drug Use: None General Adult HPI: HPI: Patient is a 76-year-old female coming in for wound to her left lower leg. Patient states that about a week ago she developed a large blister that then ruptured a few days ago. Was told by her home health to come to the emergency department for evaluation of the wound. Patient has a history of previous wounds on her leg. States she has had swelling after a fall 2 months ago but has had a work-up to rule out fracture or blood clot. Review of Systems: Review of Systems: All other systems within normal limits except for as noted in the HPI Allergies: Allergies: Allergies Coded Allergies Type Severity Reaction Last Updated Verified No Known Drug Allergies 03/21/21 No Physical Exam: PE: Constitutional: Well developed, well nourished, no acute distress, non-toxic appearance. [] HENT: Normocephalic, atraumatic, bilateral external ears normal, nose normal. [] Eyes: PERRLA, conjunctiva normal, no discharge. [] Neck: No rigidity, supple, no stridor. [] Cardiovascular: Regular rate and rhythm, brisk cap refill [] Lungs & Thorax: Non labored symmetric respirations, no tachypnea or respiratory distress [] Abdomen: Soft, nondistended. Skin: Warm, dry, no erythema, no rash. 8 cm circular superficial wound on medial left lower leg [] Back: Unremarkable Extremities: No deformities, range of motion grossly intact, no lower extremity edema [] Neurologic: Alert and oriented X 3, no focal deficits noted. [] Psychologic: Affect normal, judgement normal, mood normal. [] EKG: EKG: [] Radiology/Procedures: Radiology/Procedures: [] Heart Score: C/O Chest Pain: No Risk Factors: Risk Factors: DM, Current or recent (<one month) smoker, HTN, HLP, family history of CAD, obesity. Risk Scores: Score 0 - 3: 2.5% MACE over next 6 weeks - Discharge Home Score 4 - 6: 20.3% MACE over next 6 weeks - Admit for Clinical Observation Score 7 - 10: 72.7% MACE over next 6 weeks - Early Invasive Strategies Course & Med Decision Making: Course & Med Decision Making Pertinent Labs and Imaging studies reviewed. (See chart for details) [] Dragon Disclaimer: Dragon Disclaimer: This electronic medical record was generated, in whole or in part, using a voice recognition dictation system. Departure Departure: Impression: Primary Impression: Cellulitis Additional Impression: Wound of left leg Disposition: HOME / SELF CARE / HOMELESS Condition: STABLE Referrals: GAYLE BERRIOS MD (PCP) Patient Instructions: Wound Care, [id number] Additional Instructions: [facility] [address], [address] [place] [address] Scripts Cephalexin (CEPHALEXIN) 500 Mg Tablet 1 TAB PO TID for antibiotic for 7 Days, #21 TAB Prov: MILENA RANDOLPH MD 05/26/21 MILENA RANDOLPH MD May 26, 2021 11:14
[2021-05-26 11:43] LABS: BASO # 0.1 x10^3/uL (0.0-0.2); BASO % 1 % (0-3); EOS # 0.2 x10^3/uL (0.0-0.7); EOS % 2 % (0-3); HEMOGLOBIN 13.7 g/dL (12.0-15.5); LYMPH # 2.6 x10^3/uL (1.0-4.8); LYMPH % 29 % (24-48); MEAN CORPUSCULAR HEMOGLOBIN 32 pg (25-35); MEAN CORPUSCULAR HGB CONC 33 g/dL (31-37); MEAN CORPUSCULAR VOLUME 97 fL (79-100); MONO # 0.9 x10^3/uL (0.0-1.1); MONO % 10 % (0-9); NEUT # 5.3 x10^3uL (1.8-7.7); NEUT % 58 % (31-73); PLATELET COUNT 320 x10^3/uL (140-400); RED BLOOD COUNT 4.24 x10^6/uL (3.50-5.40); RED CELL DISTRIBUTION WIDTH 13.3 % (11.5-14.5); WHITE BLOOD COUNT 9.1 x10^3/uL (4.0-11.0)
[2021-05-26 11:51] LABS: CALCIUM 9.3 mg/dL (8.5-10.1); CREATININE 1.1 mg/dL (0.6-1.0); GFR 48.6; POTASSIUM 3.6 mmol/L (3.5-5.1)
[2021-05-26 11:56] LABS: ALBUMIN 3.3 g/dL (3.4-5.0); TOTAL BILIRUBIN 1.3 mg/dL (0.2-1.0); TOTAL PROTEIN 6.6 g/dL (6.4-8.2)
[2021-05-26] MEDS ORDERED: CEPH500T PO (12:18)
[2021-05-26 12:29] VITALS: BP 122/84
== END 2021-05-26 12:32 | disposition home or self-care (01) ==
LOC: ER 10:38
DX: S80.922A Unspecified superficial injury of left lower leg, initial encounter (principal); L03.116 Cellulitis of left lower limb; E11.9 Type 2 diabetes mellitus without complications; I10 Essential (primary) hypertension; X58.XXXA Exposure to other specified factors, initial encounter; Y93.89 Activity, other specified; Y92.89 Other specified places as the place of occurrence of the external cause; Y99.8 Other external cause status
CPT/HCPCS: 36415; 80053; 85025; 99283